=== PATIENT | female | born 1990 | race African-American/Black ===

== ENCOUNTER 2023-04-24 16:23 | Day surgery (SDC) | payer OTHER ==
[2023-04-24 17:23] VITALS: BMI 34.3
[2023-04-24] MEDS ORDERED: hydrALAZINE 20 MG/ML VIAL SLOW IVP PRN (17:52)
[2023-04-24] MEDS ORDERED: Acetaminophen 500 MG TAB PO SCH (18:45)
[2023-04-24 19:39] LABS: Bilirubin Neg (Negative); Blood, Urine Negative (Negative); Clarity Clear (Clear); Glucose, Urine (Dipstick) Normal (Negative); Ketone, Urine Negative (Negative); Leukocyte 25 (Negative); Nitrite Negative (Negative); Protein, Urine (Dipstick) Negative (Neg-Trace)
[2023-04-24 19:43] LABS: Bacteria/HPF Rare-Few HPF (None Seen); CAUTI Indications for Culture Pregnancy; Squamous Epithelial 0-3 HPF (0-3)
[2023-04-24 19:46] LABS: Urine Culture Reflex Yes Yes
[2023-04-24] MEDS ORDERED: Nitrofurantoin Monohyd/M-Cryst 100 MG CAP PO SCH (20:15)
== END 2023-04-24 20:22 | disposition home or self-care (01) ==
LOC: CSHLD/OP 16:23
PROVIDERS: ATTEND Obstetrics & Gynecology
DX: O99.891 Other specified diseases and conditions complicating pregnancy (principal); R10.30 Lower abdominal pain, unspecified; O13.3 Gestational [pregnancy-induced] hypertension without significant proteinuria, third trimester; O99.343 Other mental disorders complicating pregnancy, third trimester; F32.9 Major depressive disorder, single episode, unspecified; G47.00 Insomnia, unspecified; O99.013 Anemia complicating pregnancy, third trimester; D64.9 Anemia, unspecified; O99.513 Diseases of the respiratory system complicating pregnancy, third trimester; J45.909 Unspecified asthma, uncomplicated; O99.283 Endocrine, nutritional and metabolic diseases complicating pregnancy, third trimester; E86.0 Dehydration; Z79.899 Other long term (current) drug therapy; Z88.0 Allergy status to penicillin; Z88.2 Allergy status to sulfonamides; Z91.041 Radiographic dye allergy status; Z88.5 Allergy status to narcotic agent; Z3A.31 31 weeks gestation of pregnancy
CPT/HCPCS: 81001; 87086; 99283

== ENCOUNTER 2023-05-08 17:24 | Observation (INO) | payer OTHER ==
[2023-05-08] MEDS ORDERED: hydrALAZINE 20 MG/ML VIAL SLOW IVP PRN (18:17)
[2023-05-08] MEDS ORDERED: Acetaminophen 500 MG TAB PO SCH (20:00)
[2023-05-08 20:19] LABS: Bilirubin Neg (Negative); Blood, Urine Negative (Negative); Clarity Clear (Clear); Glucose, Urine (Dipstick) Normal (Negative); Ketone, Urine Negative (Negative); Leukocyte Negative (Negative); Nitrite Negative (Negative); Protein, Urine (Dipstick) 15 mg/dl (Neg-Trace)
[2023-05-08 20:33] LABS: Bacteria/HPF None Seen HPF (None Seen); CAUTI Indications for Culture Pregnancy; RBC/HPF 0-3 HPF (0-3); WBC/HPF 0-3 HPF (0-3)
[2023-05-08 20:34] LABS: Urine Culture Reflex Yes Yes
[2023-05-09] MEDS ORDERED: Promethazine HCl 25 MG/ML VIAL IM SCH ×2 (00:30→20:15)
[2023-05-09] MEDS ORDERED: Morphine 4 MG/ML VIAL IM SCH ×2 (00:30→20:15)
[2023-05-09] MEDS ORDERED: Diphenoxylate HCl/Atropine Tablet PO PRN (02:09)
[2023-05-09] MEDS ORDERED: Promethazine HCl 25 MG/ML VIAL IM PRN (02:09)
[2023-05-09] MEDS ORDERED: Methylergonovine 0.2 MG/ML VIAL IM PRN (02:09)
[2023-05-09] MEDS ORDERED: Carboprost 250 MCG/ML AMP IM PRN (02:09)
[2023-05-09] MEDS ORDERED: Ondansetron PF 4 MG/2 ML Vial IVP PRN (02:09)
[2023-05-09] MEDS ORDERED: Misoprostol 200 MCG TAB PR PRN (02:09)
[2023-05-09] MEDS ORDERED: Tranexamic Acid 1,000 MG/10 ML VIAL IVP PRN (02:09)
[2023-05-09] MEDS ORDERED: hydrALAZINE 20 MG/ML VIAL SLOW IVP PRN (02:09)
[2023-05-09] MEDS ORDERED: NS w/ Oxytocin 30 units 500 ML IV SCH (02:15)
[2023-05-09] MEDS ORDERED: Acetaminophen 500 MG TAB PO SCH ×2 (05:45→12:00)
[2023-05-09] MEDS ORDERED: Iron Sucrose Complex 500 MG in Sodium Chloride 0.9% 250 ML IVPB SCH (12:30)
[2023-05-09 19:26] LABS: FFN Internal QC Analyzer PASS (PASS); FFN Internal QC Cassette PASS (PASS); Fetal Fibronectin Negative (Negative)
[2023-05-09 20:01] LABS: Chlamydia by PCR, EndoCx Swab Not Detected (NotDetected); GC by PCR, EndoCx Swab Not Detected (NotDetected)
[2023-05-10 14:58] LABS: Group B Streptococcus by PCR DETECTED (NotDetected)
== END 2023-05-10 00:18 | disposition home or self-care (01) ==
LOC: CSHLD/OP 17:24 → CSHLD 05-09 02:09
PROVIDERS: ADMIT Family Medicine; ATTEND Family Medicine
DX: O47.03 False labor before 37 completed weeks of gestation, third trimester (principal); O99.891 Other specified diseases and conditions complicating pregnancy; R10.30 Lower abdominal pain, unspecified; R00.0 Tachycardia, unspecified; O71.6 Obstetric damage to pelvic joints and ligaments; O99.013 Anemia complicating pregnancy, third trimester; D50.9 Iron deficiency anemia, unspecified; O99.343 Other mental disorders complicating pregnancy, third trimester; F33.9 Major depressive disorder, recurrent, unspecified; O99.513 Diseases of the respiratory system complicating pregnancy, third trimester; J45.20 Mild intermittent asthma, uncomplicated; Z88.0 Allergy status to penicillin; Z91.041 Radiographic dye allergy status; Z91.018 Allergy to other foods; Z3A.32 32 weeks gestation of pregnancy
CPT/HCPCS: 76817; 81001; 82731; 87086; 87480; 87491; 87510; 87591; 87653; 87660; 96360; 96365; 96372; 96374; 99285; G0378; J1756; J2270; J2550; J3490

== ENCOUNTER 2023-05-16 17:34 | Day surgery (SDC) | payer OTHER ==
[2023-05-16 17:58] VITALS: BMI 32.8
[2023-05-16] MEDS ORDERED: hydrALAZINE 20 MG/ML VIAL SLOW IVP PRN (18:43)
[2023-05-16] MEDS ORDERED: Acetaminophen 500 MG TAB PO SCH (19:00)
[2023-05-16] MEDS ORDERED: Lactated Ringer's 1,000 ML IV SCH (19:00)
== END 2023-05-16 21:34 | disposition home or self-care (01) ==
LOC: CSHLD/OP 17:34
PROVIDERS: ATTEND Student in an Organized Health Care Education/Training Program
DX: O99.891 Other specified diseases and conditions complicating pregnancy (principal); R10.2 Pelvic and perineal pain; O99.283 Endocrine, nutritional and metabolic diseases complicating pregnancy, third trimester; E86.0 Dehydration; O99.513 Diseases of the respiratory system complicating pregnancy, third trimester; J45.909 Unspecified asthma, uncomplicated; O99.013 Anemia complicating pregnancy, third trimester; D64.9 Anemia, unspecified; Z3A.34 34 weeks gestation of pregnancy; Z79.899 Other long term (current) drug therapy; Z91.041 Radiographic dye allergy status; Z91.018 Allergy to other foods; Z88.0 Allergy status to penicillin; Z88.1 Allergy status to other antibiotic agents; Z88.2 Allergy status to sulfonamides; Z88.6 Allergy status to analgesic agent
CPT/HCPCS: 96360; 96361; 99282

== ENCOUNTER 2023-06-02 13:47 | Day surgery (SDC) | payer OTHER, SELFPAY ==
[2023-06-02 14:17] VITALS: BMI 32.5
[2023-06-02] MEDS ORDERED: hydrALAZINE 20 MG/ML VIAL SLOW IVP PRN (15:08)
[2023-06-02] MEDS ORDERED: Acetaminophen 500 MG TAB PO SCH (16:00)
[2023-06-02 17:00] LABS: Bilirubin Neg (Negative); Blood, Urine Negative (Negative); Clarity Clear (Clear); Glucose, Urine (Dipstick) Normal (Negative); Ketone, Urine Negative (Negative); Leukocyte 100 (Negative); Nitrite Negative (Negative); Protein, Urine (Dipstick) Negative (Neg-Trace); Specific Gravity, Urine 1.005 (1.005-1.030); Urobilinogen Normal mg/dL (Less than 2)
[2023-06-02 17:07] LABS: Bacteria/HPF None Seen HPF (None Seen); RBC/HPF None Seen HPF (0-3); Squamous Epithelial 0-3 HPF (0-3); WBC/HPF 0-3 HPF (0-3)
[2023-06-02] MEDS ORDERED: Lactated Ringer's 1,000 ML IV SCH (20:00)
== END 2023-06-02 21:18 | disposition home or self-care (01) ==
LOC: CSHLD/OP 13:47
PROVIDERS: ATTEND Emergency Medicine
DX: O47.03 False labor before 37 completed weeks of gestation, third trimester (principal); O99.513 Diseases of the respiratory system complicating pregnancy, third trimester; J45.20 Mild intermittent asthma, uncomplicated; O99.013 Anemia complicating pregnancy, third trimester; D64.9 Anemia, unspecified; O98.813 Other maternal infectious and parasitic diseases complicating pregnancy, third trimester; B95.1 Streptococcus, group B, as the cause of diseases classified elsewhere; Z3A.36 36 weeks gestation of pregnancy; Z79.899 Other long term (current) drug therapy; Z88.0 Allergy status to penicillin; Z88.2 Allergy status to sulfonamides; Z88.1 Allergy status to other antibiotic agents; Z88.6 Allergy status to analgesic agent; Z91.041 Radiographic dye allergy status; Z87.410 Personal history of cervical dysplasia
CPT/HCPCS: 81003; 81015; 87070; 87205; 99283

== ENCOUNTER 2023-06-11 19:06 | Day surgery (SDC) | payer SELFPAY ==
[2023-06-11 19:47] VITALS: BMI 33.6
[2023-06-11] MEDS ORDERED: hydrALAZINE 20 MG/ML VIAL SLOW IVP PRN (20:23)
[2023-06-11] MEDS ORDERED: Acetaminophen 500 MG TAB PO SCH (22:51)
[2023-06-11] MEDS ORDERED: Morphine 4 MG/ML VIAL IM SCH (23:30)
== END 2023-06-11 23:35 | disposition home or self-care (01) ==
LOC: CSHLD/OP 19:06
PROVIDERS: ATTEND Family Medicine
DX: O47.1 False labor at or after 37 completed weeks of gestation (principal); O13.3 Gestational [pregnancy-induced] hypertension without significant proteinuria, third trimester; O99.343 Other mental disorders complicating pregnancy, third trimester; F33.9 Major depressive disorder, recurrent, unspecified; O99.353 Diseases of the nervous system complicating pregnancy, third trimester; G47.00 Insomnia, unspecified; O99.513 Diseases of the respiratory system complicating pregnancy, third trimester; J45.20 Mild intermittent asthma, uncomplicated; O99.013 Anemia complicating pregnancy, third trimester; Z98.890 Other specified postprocedural states; O99.820 Streptococcus B carrier state complicating pregnancy; Z79.899 Other long term (current) drug therapy; Z88.0 Allergy status to penicillin; Z88.2 Allergy status to sulfonamides; Z91.018 Allergy to other foods; Z91.041 Radiographic dye allergy status; Z88.5 Allergy status to narcotic agent; Z88.8 Allergy status to other drugs, medicaments and biological substances; Z3A.37 37 weeks gestation of pregnancy
CPT/HCPCS: 96372; 99283; J2270

== ENCOUNTER 2023-06-14 09:57 | Day surgery (SDC) | payer SELFPAY ==
[2023-06-14 10:21] VITALS: BMI 33.6
[2023-06-14] MEDS ORDERED: hydrALAZINE 20 MG/ML VIAL SLOW IVP PRN (10:48)
[2023-06-14 11:32] LABS: Fetal Membranes Rupture No Membranes Rupture (No Rupture)
[2023-06-14 12:19] LABS: Hematocrit 32.6 % (34.9-44.5); Hemoglobin 10.5 g/dL (12.0-15.5); Mean Corpuscular HGB CONC 32.2 g/dL (32.0-36.0); Mean Corpuscular Hemoglobin 27.9 pg (27.0-33.0); Mean Corpuscular Volume 86.5 fl (81.6-98.3); Platelet Count 352 10x3/uL (150-450); RBC Distribution Width 16.2 % (11.5-14.5); Red Blood Cell (RBC) Count 3.77 10x6/uL (3.90-5.03); White Blood Cell (WBC) Count 12.9 10x3/uL (3.5-10.5)
== END 2023-06-14 15:15 | disposition home or self-care (01) ==
LOC: CSHLD/OP 09:57
PROVIDERS: ATTEND Obstetrics & Gynecology
DX: O47.1 False labor at or after 37 completed weeks of gestation (principal); O24.419 Gestational diabetes mellitus in pregnancy, unspecified control; O36.8130 Decreased fetal movements, third trimester, not applicable or unspecified; O99.013 Anemia complicating pregnancy, third trimester; D64.9 Anemia, unspecified; O99.820 Streptococcus B carrier state complicating pregnancy; O99.343 Other mental disorders complicating pregnancy, third trimester; F33.9 Major depressive disorder, recurrent, unspecified; O99.353 Diseases of the nervous system complicating pregnancy, third trimester; G47.00 Insomnia, unspecified; O13.3 Gestational [pregnancy-induced] hypertension without significant proteinuria, third trimester; O99.513 Diseases of the respiratory system complicating pregnancy, third trimester; J45.20 Mild intermittent asthma, uncomplicated; Z88.0 Allergy status to penicillin; Z79.899 Other long term (current) drug therapy; Z88.2 Allergy status to sulfonamides; Z91.041 Radiographic dye allergy status; Z91.018 Allergy to other foods; Z68.38 Body mass index [BMI] 38.0-38.9, adult
CPT/HCPCS: 84112; 85027; 99285